=== PATIENT | female | born 1955 | race Caucasian/White ===

== ENCOUNTER 2024-04-27 21:21 | Emergency (ER) | payer MEDICARE ==
[2024-04-27] MEDS ORDERED: Ketorolac Tromethamine 30 MG (1 mL) VIAL ONE (21:33)
[2024-04-27] MEDS ORDERED: Boostrix 0.5 ML (Tdap) VIAL (>/=7 yrs of age) ONE (21:46)
[2024-04-27] MEDS ORDERED: Acetaminophen/Codeine 30-300mg Tablet ONE (22:12)
[2024-04-27] MEDS ORDERED: Bacitracin 1 PK ONE (22:17)
== END 2024-04-27 22:47 | disposition home or self-care (01) ==
LOC: BURERS 21:21
DX: S00.03XA Contusion of scalp, initial encounter (principal); S30.0XXA Contusion of lower back and pelvis, initial encounter; E11.9 Type 2 diabetes mellitus without complications; W07.XXXA Fall from chair, initial encounter
CPT/HCPCS: 70450; 72125; 72170; 90471; 90715; 96374; J1885